=== PATIENT | female | born 2000 | race Two or more races ===

== ENCOUNTER 2022-11-27 23:36 | Emergency (ER) | payer MEDICAID, OTHER ==
[~2022-11-27] VITALS: Ht 162.6 cm; Wt 91.0 kg
[2022-11-28 00:46] LABS: Urine Bacteria NONE SEEN /hpf (None Seen); Urine Blood 3+ /uL (Negative); Urine WBC 79 /hpf (0 - 5)
[2022-11-28 00:48] LABS: Urine Specific Gravity 1.021 (1.001-1.035)
[2022-11-28 01:24] VITALS: BP 144/94
[2022-11-28] MEDS ORDERED: cefTRIAXone SOD 1,000 MG VL IM ONE (02:00)
[2022-11-28] MEDS ORDERED: IBUPROFEN 800 MG TAB PO ONE (02:00)
[2022-11-28] MEDS ORDERED: SULF800T23 PO (02:02)
[2022-11-28] MEDS ORDERED: IBUP-1456 PO (02:02)
== END 2022-11-28 02:46 | disposition home or self-care (01) ==
LOC: ER 23:36
DX: N39.0 Urinary tract infection, site not specified (principal); Z87.440 Personal history of urinary (tract) infections; F12.10 Cannabis abuse, uncomplicated
CPT/HCPCS: 81001; 81025; 96372; 99283; J0696